=== PATIENT | male | born 1995 | race Two or more races ===

== ENCOUNTER 2019-11-01 04:16 | Emergency (ER) | payer OTHER ==
[~2019-11-01] VITALS: Ht 193 cm; Wt 90.0 kg
[2019-11-01] MEDS ORDERED: KEP500T PO (04:21)
[2019-11-01] MEDS ORDERED: levetiracetam 250mg tablet PO ONE (04:25)
[2019-11-01 04:37] VITALS: BP 132/72
== END 2019-11-01 04:45 | disposition home or self-care (01) ==
LOC: ER 04:18
DX: G40.909 Epilepsy, unspecified, not intractable, without status epilepticus (principal); F12.90 Cannabis use, unspecified, uncomplicated; Z79.899 Other long term (current) drug therapy; Z76.0 Encounter for issue of repeat prescription
CPT/HCPCS: 99283